=== PATIENT | female | born 1995 | race Caucasian/White ===

== ENCOUNTER 2017-05-16 12:12 | Emergency (ER) | payer SELFPAY ==
--- NOTE | 2017-05-16 13:58 | RAD ---
THREE VIEWS RIGHT HAND: HISTORY: The patient fell on hand two days ago. Swelling and pain. COMPARISON: None. FINDINGS: There is an obliquely oriented, nondisplaced fracture involving the fourth metacarpal. No evidence o f intraarticular extension. There is associated soft tissue swelling. Additional fractures are not appreciated. IMPRESSION: Fourth metacarpal fracture. POS: [facility]
== END 2017-05-16 14:05 | disposition home or self-care (01) ==
LOC: ERS 12:12
DX: S62.304A Unspecified fracture of fourth metacarpal bone, right hand, initial encounter for closed fracture (principal); F17.210 Nicotine dependence, cigarettes, uncomplicated; W17.89XA Other fall from one level to another, initial encounter
CPT/HCPCS: 29125